=== PATIENT | male | born 1995 | race African-American/Black ===

== ENCOUNTER 2018-08-17 14:05 | Emergency (ER) | payer OTHER ==
[~2018-08-17] VITALS: Ht 167.6 cm; Wt 100.0 kg
[2018-08-17] MEDS ORDERED: ALBUTEROL (0.5%) 2.5MG/0.5ML NEB HHN ONE (15:15)
[2018-08-17 16:30] VITALS: BP 138/84
== END 2018-08-17 16:35 | disposition home or self-care (01) ==
LOC: ER 14:05
DX: R06.02 Shortness of breath (principal); F41.9 Anxiety disorder, unspecified
CPT/HCPCS: 71045; 94640; 99283; J7611